=== PATIENT | male | born 1965 | race African-American/Black ===

== ENCOUNTER 2021-01-10 13:01 | Emergency (ER) | payer MEDICAID ==
[~2021-01-10] VITALS: Ht 180.3 cm; Wt 75.0 kg
[2021-01-10] MEDS ORDERED: MUPI22OI2 TP (16:19)
[2021-01-10 16:44] VITALS: BP 114/78
== END 2021-01-10 16:46 | disposition home or self-care (01) ==
LOC: ER 13:01
DX: Z48.00 Encounter for change or removal of nonsurgical wound dressing (principal); Z98.890 Other specified postprocedural states
CPT/HCPCS: 99283

== ENCOUNTER 2021-05-10 05:13 | Emergency (ER) | payer MEDICAID ==
[~2021-05-10] VITALS: Ht 177.8 cm; Wt 61.0 kg
[~2021-05-10 05:13] MED LIST: MUPI22OI2 TP
[2021-05-10 05:58] LABS: BASOPHILS % 0.7 % (0.0-2.0); EOSINOPHILS % 1.5 % (0.0-5.0); HEMATOCRIT. 31.7 % (42.0-52.0); HEMOGLOBIN. 10.7 g/dL (14.0-18.0); LYMPHOCYTES % 31.9 % (20.0-50.0); MEAN CORPUSCULAR HEMOGLOBIN 30.7 pg (28.0-32.0); MEAN CORPUSCULAR VOLUME 91.3 fL (80.0-94.0); MEAN PLATELET VOLUME 8.8 fl (7.4-10.4); MONOCYTES % 7.9 % (2.0-8.0); PLATELET 465 x1000/uL (130-400); RED BLOOD CELL COUNT 3.48 mill/uL (4.7-6.1); RED CELL DISTRIBUTION WIDTH 13.5 % (11.6-14.6)
[2021-05-10 06:03] LABS: CHLORIDE 101 mEq/L (98-107)
[2021-05-10 08:33] VITALS: BP 126/64
== END 2021-05-10 09:38 | disposition home or self-care (01) ==
LOC: ER 05:13
DX: J95.03 Malfunction of tracheostomy stoma (principal); Z85.818 Personal history of malignant neoplasm of other sites of lip, oral cavity, and pharynx; R00.0 Tachycardia, unspecified; D64.9 Anemia, unspecified; Z87.891 Personal history of nicotine dependence; Y82.8 Other medical devices associated with adverse incidents; Y92.018 Other place in single-family (private) house as the place of occurrence of the external cause
CPT/HCPCS: 36415; 71045; 80053; 85025; 93005; 99285

== ENCOUNTER 2021-07-08 19:35 | Emergency (ER) | payer MEDICAID ==
[~2021-07-08] VITALS: Ht 172.7 cm; Wt 55.0 kg
[2021-07-09 01:57] VITALS: BP 94/64
== END 2021-07-09 01:57 | disposition home or self-care (01) ==
LOC: ER 19:35
DX: R06.02 Shortness of breath (principal); Z93.0 Tracheostomy status; Z85.6 Personal history of leukemia
CPT/HCPCS: 71045; 93005; 99285